=== PATIENT | female | born 1960 | race Caucasian/White ===

== ENCOUNTER 2018-02-03 12:13 | Emergency (ER) | payer OTHER ==
--- NOTE | 2018-02-03 14:37 | EDM.PDOC ---
ED HPI GENERAL MEDICAL PROBLEM - General Chief Complaint: Genitourinary Problem Stated Complaint: possible uti Time Seen by Provider: 02/03/18 14:00 Source of Information: Reports: Patient History Limitations: Reports: No Limitations - History of Present Illness INITIAL COMMENTS - FREE TEXT/NARRATIVE: Yeni presents today with complaints of burning with urination since this morning. She denies fevers, chills, nausea or other concerns. 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 She states she drinks 3 cans of mountain dew per day with little water intake. - Related Data Allergies Allergy/AdvReac Type Severity Reaction Status Date / Time sulfamethoxazole Allergy Hives Verified 02/03/18 13:17 [From Bactrim] trimethoprim [From Bactrim] Allergy Hives Verified 02/03/18 13:17 Home Meds: Home Meds Simvastatin [Zocor] 02/03/18 [History] Past Medical History - Past Surgical History Female Surgical History: Reports: Section, Hysterectomy Social & Family History - Tobacco Use Smoking Status *Q: Never Smoker ED ROS GENERAL - Review of Systems Review Of Systems: See Below Constitutional: Denies: Fever, Chills, Malaise, Weakness HEENT: Reports: No Symptoms Respiratory: Reports: No Symptoms Cardiovascular: Reports: No Symptoms Endocrine: Reports: No Symptoms GI/Abdominal: Denies: Abdominal Pain, Black Stool, Bloody Stool, Diarrhea, Hematochezia, Nausea, Vomiting : Reports: Dysuria. Denies: Flank Pain, Frequency, Hematuria, Incontinence, Urgency, Urinary Retention Musculoskeletal: Reports: No Symptoms Skin: Reports: No Symptoms Neurological: Reports: No Symptoms Psychiatric: Reports: No Symptoms Hematologic/Lymphatic: Reports: No Symptoms Immunologic: Reports: No Symptoms ED EXAM, GI/ABD - Physical Exam Exam: See Below Text/Narrative:: Yeni is an alert and oriented 58 year old female presenting with complaints of burning with urination. She states her symptoms developed this morning. She denies fever, chills, nausea, vomiting, flank pain or other concerns. She has not taken any OTC to help her discomfort. She drinks 3 cans of mountain dew per day, little water intake. Exam Limited By: No Limitations General Appearance: Alert, WD/WN, No Apparent Distress Eyes: Bilateral: Normal Appearance, EOMI Ears: Normal External Exam, Normal Canal, Hearing Grossly Normal, Normal TMs Throat/Mouth: Normal Inspection, Normal Lips, Normal Oropharynx, Normal Voice, No Airway Compromise Respiratory/Chest: No Respiratory Distress, Lungs Clear, Normal Breath Sounds, No Accessory Muscle Use, Chest Non-Tender Cardiovascular: Normal Peripheral Pulses, Regular Rate, Rhythm, No Edema, No Murmur, No Rub GI/Abdominal Exam: Normal Bowel Sounds, Soft, Non-Tender, No Distention, Other ( No suprapubic or flank pain with palpation) Back Exam: Normal Inspection, Full Range of Motion. No: CVA Tenderness (R), CVA Tenderness (L) Extremities: Normal Inspection, Normal Range of Motion, Non-Tender, No Pedal Edema, Normal Capillary Refill Neurological: Alert, Oriented, CN II-XII Intact, Normal Cognition, Normal Gait, No Motor/Sensory Deficits Psychiatric: Normal Affect, Normal Mood Skin Exam: Warm, Dry, Intact, Normal Color, No Rash Lymphatic: No Adenopathy Course - Vital Signs Last Recorded V/S: Last Vital Signs Temp 36.1 C 02/03/18 13:23 Pulse 58 L 02/03/18 13:23 Resp 14 02/03/18 13:23 BP 107/56 L 02/03/18 13:23 Pulse Ox 98 02/03/18 13:23 - Orders/Labs/Meds Orders: Active Orders 24 hr Category Date Time Status CULTURE URINE [RM] Stat Lab 02/03/18 15:13 Received UA W/MICROSCOPIC [URIN] Stat Lab 02/03/18 13:26 Ordered Labs: Laboratory Tests 02/03/18 Range/Units 13:26 Urine Color Yellow Urine Appearance Cloudy Urine pH 6.5 (4.5-8.0) Ur Specific [place] 1.015 (1.008-1.030) Urine Protein Negative (NEGATIVE) mg/dL Urine Glucose (UA) Normal (NEGATIVE) mg/dL Urine Ketones 15 H (NEGATIVE) mg/dL Urine Occult Blood Moderate (NEGATIVE) Urine Nitrite Positive H (NEGATIVE) Urine Bilirubin Negative (NEGATIVE) Urine Urobilinogen Normal (NORMAL) mg/dL Ur Leukocyte Esterase Large (NEGATIVE) Urine RBC 0-5 (0-5) Urine WBC Semi-packed H (0-5) Ur Epithelial Cells Few Amorphous Sediment Few Urine Bacteria Many Urine Mucus Few Meds: Medications Discontinued Medications Generic Name Dose Route Start Last Admin Trade Name Freq PRN Reason Stop Dose Admin Nitrofurantoin Macrocrystals 200 mg 02/03/18 15:05 Macrobid PO 02/03/18 15:06 ONETIME ONE - Re-Assessments/Exams Free Text/Narrative Re-Assessment/Exam: 02/03/18 14:30 Urine collected upon triage, urine not found for patient. Patient informed we would need another urine sample, she declined. She was offered use of water, a work note to be off of work the rest of the day , she declined. She was advised to repeat urine sample due to her symptoms, she declined. 02/03/18 14:35 Patient decided to provide another urine sample. We will run and diagnose as appropriate. Noted acute UTI, medication as directed. Education provided on hydration, drinking of water and follow up with primary provider. Patient verbalized understanding. Departure - Departure Time of Disposition: 14:56 Disposition: Home, Self-Care 01 Condition: Good Clinical Impression: Acute urinary tract infection - Discharge Information Instructions: Urinary Tract Infection, Adult Referrals: PCP,None [Primary Care Provider] - Forms: ED Department Discharge Additional Instructions: You have been treated and diagnosed with acute urinary tract infection. Take nitrofurantoin 100mg by mouth twice a day for a total of 7 days. Drink plenty of water on a daily basis to stay hydrated and prevent infection. Follow up with your primary provider in 14 days for a recheck and recurrent infections. Return for worsening, issues or concerns. - My Orders Last 24 Hours: My Active Orders 02/03/18 13:26 UA W/MICROSCOPIC [URIN] Stat 02/03/18 15:13 CULTURE URINE [RM] Stat - Assessment/Plan Last 24 Hours: My Active Orders 02/03/18 13:26 UA W/MICROSCOPIC [URIN] Stat 02/03/18 15:13 CULTURE URINE [RM] Stat Assessment:: Acute UTI Plan: Patient evaluated and diagnosed with acute urinary tract infection. Take nitrofurantoin 100mg by mouth twice a day for a total of 7 days. Drink plenty of water on a daily basis to stay hydrated and prevent infection. Follow up with primary provider in 14 days for a recheck and recurrent infections. Return for worsening, issues or concerns.
[2018-02-03] MEDS ORDERED: Nitrofurantoin Monohydrate/Macrocrystalline 100 MG Cap PO ONE (15:05)
== END 2018-02-03 14:33 | disposition home or self-care (01) ==
LOC: JP.ED 12:13
DX: N39.0 Urinary tract infection, site not specified (principal); Z88.8 Allergy status to other drugs, medicaments and biological substances
CPT/HCPCS: 81001; 87086; 87088; 87186; 99284

== ENCOUNTER 2020-03-21 21:36 | Emergency (ER) | payer OTHER ==
--- NOTE | 2020-03-21 22:28 | EDM.PDOC ---
ED HPI GENERAL MEDICAL PROBLEM - General Chief Complaint: Genitourinary Problem Stated Complaint: POSSIBLE UTI Time Seen by Provider: 03/21/20 22:01 Source of Information: Reports: Patient, Family, RN Notes Reviewed History Limitations: Reports: No Limitations - History of Present Illness INITIAL COMMENTS - FREE TEXT/NARRATIVE: Yeni presents today with complaints of urinary tract infection and left flank for two days. She reports she has been taking azo with no relief. She denies fever, chills, nausea, vomiting or any other concerns. Left Flank Pain Score (Numeric/FACES): 5 - Related Data Allergies Allergy/AdvReac Type Severity Reaction Status Date / Time sulfamethoxazole Allergy Hives Verified 03/21/20 21:55 [From Bactrim] trimethoprim [From Bactrim] Allergy Hives Verified 03/21/20 21:55 Home Meds: Home Meds Simvastatin [Zocor] 10 mg PO DAILY 02/03/18 [History] Albuterol Sulfate [Proair Hfa] 8.5 gm IH ASDIRECTED 06/12/18 [History] Budesonide/Formoterol Fumarate [Symbicort 160-4.5 Mcg Inhaler] 2 puff IH ASDIRECTED 06/12/18 [History] Naproxen 500 mg PO DAILY 03/21/20 [History] methocarbamoL [Methocarbamol] 500 mg PO QID PRN 03/21/20 [History] Past Medical History HEENT History: Reports: Allergic Rhinitis, Impaired Vision, Otitis Media Cardiovascular History: Reports: High Cholesterol Respiratory History: Reports: Asthma, Bronchitis, Recurrent Gastrointestinal History: Reports: GERD Genitourinary History: Reports: UTI, Recurrent MANAGER FUND History: Reports: Dysfunctional Uterine Bleeding, Musculoskeletal History: Reports: Arthritis Neurological History: Reports: Migraines Hematologic History: Reports: Blood Transfusion(s) - Infectious Disease History Infectious Disease History: Reports: Chicken Pox, Measles - Past Surgical History HEENT Surgical History: Reports: Myringotomy w Tube(s) Female Surgical History: Reports: Section, Hysterectomy Social & Family History - Tobacco Use Smoking Status *Q: Never Smoker - Caffeine Use Caffeine Use: Reports: Soda - Recreational Drug Use Recreational Drug Use: No ED ROS GENERAL - Review of Systems Review Of Systems: See Below Constitutional: Reports: No Symptoms HEENT: Reports: No Symptoms Respiratory: Reports: No Symptoms Cardiovascular: Reports: No Symptoms Endocrine: Reports: No Symptoms GI/Abdominal: Reports: No Symptoms : Reports: Dysuria, Flank Pain, Frequency, Urgency. Denies: Discharge, Hematuria Musculoskeletal: Reports: No Symptoms Skin: Reports: No Symptoms Neurological: Reports: No Symptoms Psychiatric: Reports: No Symptoms Hematologic/Lymphatic: Reports: No Symptoms Immunologic: Reports: No Symptoms ED EXAM, RENAL/ - Physical Exam Exam: See Below Exam Limited By: No Limitations General Appearance: Alert, WD/WN, No Apparent Distress Head: Atraumatic, Normocephalic Respiratory/Chest: No Respiratory Distress, Lungs Clear, Normal Breath Sounds, No Accessory Muscle Use, Chest Non-Tender. No: Crackles, Rales, Rhonchi, Wheezing Cardiovascular: Normal Peripheral Pulses, Regular Rate, Rhythm, No Edema, No Gallop, No Murmur, No Rub Back Exam: Normal Inspection, Full Range of Motion, CVA Tenderness (L). No: CVA Tenderness (R) Extremities: Normal Inspection, Normal Range of Motion, Non-Tender, No Pedal Edema, Normal Capillary Refill Neurological: Alert, Oriented, Normal Cognition, Normal Gait Psychiatric: Normal Affect, Normal Mood Skin Exam: Warm, Dry, Intact, Normal Color, No Rash Lymphatic: No Adenopathy Course - Vital Signs Last Recorded V/S: Last Vital Signs Temp 36.2 C 03/21/20 22:00 Pulse 64 03/21/20 22:00 Resp 18 03/21/20 22:00 BP 118/66 03/21/20 22:00 Pulse Ox 97 03/21/20 22:00 - Orders/Labs/Meds Labs: Laboratory Tests 03/21/20 03/21/20 03/21/20 Range/Units 21:41 22:11 22:11 WBC 6.4 (4.5-11.0) K/uL RBC 4.41 (3.30-5.50) M/uL Hgb 12.8 (12.0-15.0) g/dL Hct 39.9 (36.0-48.0) % MCV 91 (80-98) fL MCH 29 (27-31) pg MCHC 32 (32-36) % Plt Count 266 (150-400) K/uL Neut % (Auto) 51 (36-66) % Lymph % (Auto) 37 (24-44) % [place] % (Auto) 10 H (2-6) % Eos % (Auto) 2 (2-4) % Baso % (Auto) 0 (0-1) % Sodium 140 (140-148) mmol/L Potassium 3.6 (3.6-5.2) mmol/L Chloride 104 (100-108) mmol/L Carbon Dioxide 27 (21-32) mmol/L Anion Gap 9.2 (5.0-14.0) mmol/L BUN 19 H (7-18) mg/dL Creatinine 1.0 (0.6-1.0) mg/dL Est Cr Clr Drug Dosing 50.11 mL/min Estimated GFR (MDRD) 57 L (>60) Glucose 118 H (74-106) mg/dL Calcium 8.8 (8.5-10.1) mg/dL Urine Color [place] A (YELLOW) Urine Appearance Slightly cloudy A (CLEAR) Urine pH 5.0 (5.0-8.0) Ur Specific [place] >= 1.030 (1.008-1.030) Urine Protein 100 H (NEGATIVE) mg/dL Urine Glucose (UA) 100 H (NEGATIVE) mg/dL Urine Ketones Negative (NEGATIVE) mg/dL Urine Occult Blood Trace-intact H (NEGATIVE) Urine Nitrite Positive H (NEGATIVE) Urine Bilirubin Small H (NEGATIVE) Urine Urobilinogen 2.0 H (0.2-1.0) EU/dL Ur Leukocyte Esterase Large H (NEGATIVE) Urine RBC 0-5 (0-5) Urine WBC 50-75 H (0-5) Ur Epithelial Cells Rare Amorphous Sediment Not seen Urine Bacteria Many Urine Mucus Not seen Urine positive for acute urinary tract infection - Re-Assessments/Exams Free Text/Narrative Re-Assessment/Exam: 03/21/20 22:38 Patient lab work reviewed with her, advised to have rocephin 1gram IM with oral ciprofloxacin for treatment due to left flank pain. Patient reports she does not like needles, refuses IM injection. Education provided on risk/signs for worsening infection. Return to the emergency for any worsening, issues or concerns. Urine culture pending. Departure - Departure Time of Disposition: 22:41 Disposition: Home, Self-Care 01 Condition: Good Clinical Impression: UTI, Urinary tract infectious disease - Discharge Information Instructions: Urinary Tract Infection, Adult Referrals: PCP,None [Primary Care Provider] - Forms: ED Department Discharge Additional Instructions: Push water/oral fluids. Take ciprofloxacin 500mg by mouth twice a day for 7 days. Take phenazopyridine as needed for pain. Urine culture pending. Return to the emergency room for any fever, chills, confusion, change in urination, nausea, vomiting or worsening. Sepsis Event Note (ED) - Evaluation Sepsis Screening Result: No Definite Risk - Focused Exam Vital Signs: Vital Signs Temp Pulse Resp BP Pulse Ox 03/21/20 22:00 36.2 C 64 18 118/66 97 03/21/20 21:59 36.2 C 64 18 118/66 97 - Assessment/Plan Assessment:: Urinary tract infectious disease Plan: Push water/oral fluids. Take ciprofloxacin 500mg by mouth twice a day for 7 days. Take phenazopyridine as needed for pain. Urine culture pending. Return to the emergency room for any fever, chills, confusion, change in urination, nausea, vomiting or worsening.
== END 2020-03-21 22:50 | disposition home or self-care (01) ==
LOC: JP.ED 21:36
DX: N39.0 Urinary tract infection, site not specified (principal); E78.00 Pure hypercholesterolemia, unspecified; J45.909 Unspecified asthma, uncomplicated; G43.909 Migraine, unspecified, not intractable, without status migrainosus; Z90.710 Acquired absence of both cervix and uterus; Z98.890 Other specified postprocedural states; Z88.2 Allergy status to sulfonamides; Z79.899 Other long term (current) drug therapy
CPT/HCPCS: 36415; 80048; 81001; 85025; 87086; 87088; 87186; 99283; 99284

== ENCOUNTER 2020-11-29 15:14 | Emergency (ER) | payer OTHER ==
--- NOTE | 2020-11-29 16:05 | EDM.PDOC ---
ED HPI GENERAL MEDICAL PROBLEM - General Chief Complaint: Genitourinary Problem Stated Complaint: POSSIBLE UTI Time Seen by Provider: 11/29/20 16:00 Source of Information: Reports: Patient, RN Notes Reviewed History Limitations: Reports: No Limitations - History of Present Illness INITIAL COMMENTS - FREE TEXT/NARRATIVE: 10-year-old female presents emergency department today complaint of dysuria and frequency no fevers no back pain Bladder Pain Score (Numeric/FACES): 7 - Related Data Allergies Allergy/AdvReac Type Severity Reaction Status Date / Time sulfamethoxazole Allergy Hives Verified 11/29/20 15:41 [From Bactrim] trimethoprim [From Bactrim] Allergy Hives Verified 11/29/20 15:41 Home Meds: Home Meds Simvastatin [Zocor] 10 mg PO DAILY 02/03/18 [History] Albuterol Sulfate [Proair Hfa] 8.5 gm IH ASDIRECTED 06/12/18 [History] Budesonide/Formoterol Fumarate [Symbicort 160-4.5 Mcg Inhaler] 2 puff IH ASDIRECTED 06/12/18 [History] Naproxen 500 mg PO DAILY 03/21/20 [History] methocarbamoL [Methocarbamol] 500 mg PO QID PRN 03/21/20 [History] Past Medical History HEENT History: Reports: Allergic Rhinitis, Impaired Vision, Otitis Media Cardiovascular History: Reports: High Cholesterol Respiratory History: Reports: Asthma, Bronchitis, Recurrent Gastrointestinal History: Reports: GERD Genitourinary History: Reports: UTI, Recurrent LIAISON 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 History: Reports: Dysfunctional Uterine Bleeding, Musculoskeletal History: Reports: Arthritis Neurological History: Reports: Migraines Hematologic History: Reports: Blood Transfusion(s) - Infectious Disease History Infectious Disease History: Reports: Chicken Pox, Measles - Past Surgical History HEENT Surgical History: Reports: Myringotomy w Tube(s) Female Surgical History: Reports: Section, Hysterectomy Social & Family History - Tobacco Use Tobacco Use Status *Q: Never Tobacco User Second Hand Smoke Exposure: No - Caffeine Use Caffeine Use: Reports: Soda - Recreational Drug Use Recreational Drug Use: No ED ROS GENERAL - Review of Systems Review Of Systems: See Below Constitutional: Reports: No Symptoms : Reports: Dysuria, Frequency ED EXAM, RENAL/ - Physical Exam Exam: See Below Exam Limited By: No Limitations General Appearance: Alert, WD/WN, No Apparent Distress Respiratory/Chest: No Respiratory Distress GI/Abdominal: Soft, Non-Tender Course - Vital Signs Last Recorded V/S: Last Vital Signs Temp 97.3 F 11/29/20 15:46 Pulse 64 11/29/20 15:46 Resp 16 11/29/20 15:46 BP 116/61 11/29/20 15:46 Pulse Ox 96 11/29/20 15:46 - Orders/Labs/Meds Orders: Active Orders 24 hr Category Date Time Status CULTURE URINE [RM] Urgent Lab 11/29/20 16:00 Ordered Labs: Laboratory Tests 11/29/20 Range/Units 15:40 Urine Color Yellow (YELLOW) Urine Appearance Clear (CLEAR) Urine pH 7.0 (5.0-8.0) Ur Specific [place] 1.020 (1.008-1.030) Urine Protein Negative (NEGATIVE) mg/dL Urine Glucose (UA) Negative (NEGATIVE) mg/dL Urine Ketones Negative (NEGATIVE) mg/dL Urine Occult Blood Trace-lysed H (NEGATIVE) Urine Nitrite Positive H (NEGATIVE) Urine Bilirubin Negative (NEGATIVE) Urine Urobilinogen 0.2 (0.2-1.0) EU/dL Ur Leukocyte Esterase Negative (NEGATIVE) Urine RBC 0-5 (0-5) Urine WBC 5-10 H (0-5) Ur Epithelial Cells Rare Amorphous Sediment Not seen Urine Bacteria Moderate Urine Mucus Not seen Departure - Departure Time of Disposition: 16:05 Disposition: Home, Self-Care 01 Condition: Fair Clinical Impression: UTI, Urinary tract infectious disease - Discharge Information Instructions: Urinary Tract Infection, Adult, [id number] Referrals: PCP,None [Primary Care Provider] - Additional Instructions: Take full course of antibiotics, please followup with your primary care provider in 3-5 days if not better, please call return to the emergency department with worsening of symptoms. Sepsis Event Note (ED) - Evaluation Sepsis Screening Result: No Definite Risk - Focused Exam Vital Signs: Vital Signs Temp Pulse Resp BP Pulse Ox 11/29/20 15:46 97.3 F 64 16 116/61 96 11/29/20 15:31 97.3 F 64 16 116/61 96 - My Orders Last 24 Hours: My Active Orders 11/29/20 16:00 CULTURE URINE [RM] Urgent - Assessment/Plan Last 24 Hours: My Active Orders 04/11/21 16:00 CULTURE URINE [RM] Urgent Plan: Assessment Acuity = acute Site and laterality = urinary tract infection Etiology = probable bacterial cause Manifestations = dysuria Location of injury = Home Lab values = urinalysis positive for nitrates cultures pending Plan Elected to treat empirically Macrobid 100 mg p.o. twice daily x5 days follow-up primary care 3 to 5 days if not better This note was dictated using [employer] voice recognition software please call with any questions on syntax or grammar.
== END 2020-11-29 16:13 | disposition home or self-care (01) ==
LOC: JP.ED 15:14
DX: N39.0 Urinary tract infection, site not specified (principal); E78.00 Pure hypercholesterolemia, unspecified; J45.909 Unspecified asthma, uncomplicated; Z90.710 Acquired absence of both cervix and uterus; Z79.899 Other long term (current) drug therapy; Z88.1 Allergy status to other antibiotic agents
CPT/HCPCS: 81001; 87086; 99283

== ENCOUNTER 2021-06-05 22:05 | Emergency (ER) | payer OTHER ==
--- NOTE | 2021-06-05 22:59 | EDM.PDOC ---
ED HPI GENERAL MEDICAL PROBLEM - General Chief Complaint: Respiratory Problem Stated Complaint: COUGH X 11 DAYS Time Seen by Provider: 06/05/21 22:45 Source of Information: Reports: Patient, Old Records, RN History Limitations: Reports: No Limitations - History of Present Illness INITIAL COMMENTS - FREE TEXT/NARRATIVE: 61 yo female presents for a cough. Sx's are worse at night. No other associated sx's other than a little clear rhinorrhea and nasal congestion. Has asthma, but states her albuterol does not help her cough. She has Mounika at home, but is not currently taking it. The coughing has been going on for about 1.5 weeks. Has not been to her primary for this. Feels like she may be having a low grade fever at times. Had an episode of bilateral leg weakness earlier today that resolved on its own fully. Onset: Gradual Onset Date: 05/26/21 Duration: Week(s): (1.5), Waxing/Waning Location: Reports: Chest Quality: Reports: Other (no pain) Severity: Mild Improves with: Reports: None Worsens with: Reports: Other (unknown) Context: Reports: Other (See HPI) Associated Symptoms: Reports: Cough. 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 (see below) (took Excedrin before coming in) body aches Pain Score (Numeric/FACES): 6 headache Pain Score (Numeric/FACES): 9 - Related Data Allergies Allergy/AdvReac Type Severity Reaction Status Date / Time sulfamethoxazole Allergy Hives Verified 06/05/21 22:18 [From Bactrim] trimethoprim [From Bactrim] Allergy Hives Verified 06/05/21 22:18 Home Meds: Home Meds Simvastatin [Zocor] 10 mg PO DAILY 02/03/18 [History] Budesonide/Formoterol Fumarate [Symbicort 160-4.5 Mcg Inhaler] 2 puff IH ASDIRECTED 06/12/18 [History] Naproxen 500 mg PO DAILY 03/21/20 [History] methocarbamoL [Methocarbamol] 500 mg PO QID PRN 03/21/20 [History] Past Medical History HEENT History: Reports: Allergic Rhinitis, Impaired Vision, Otitis Media Cardiovascular History: Reports: High Cholesterol Respiratory History: Reports: Asthma, Bronchitis, Recurrent Gastrointestinal History: Reports: GERD Genitourinary History: Reports: UTI, Recurrent HR INTERN History: Reports: Dysfunctional Uterine Bleeding, Musculoskeletal History: Reports: Arthritis Neurological History: Reports: Migraines Hematologic History: Reports: Blood Transfusion(s) - Infectious Disease History Infectious Disease History: Reports: Chicken Pox, Measles - Past Surgical History HEENT Surgical History: Reports: Myringotomy w Tube(s) Female Surgical History: Reports: Section, Hysterectomy Social & Family History - Tobacco Use Tobacco Use Status *Q: Never Tobacco User - Caffeine Use Caffeine Use: Reports: Soda - Recreational Drug Use Recreational Drug Use: No ED ROS GENERAL - Review of Systems Review Of Systems: See Below Constitutional: Reports: Fever (not measured) HEENT: Reports: Rhinitis (and mild congestion) Respiratory: Reports: Cough. Denies: Shortness of Breath, Wheezing, Sputum Cardiovascular: Reports: No Symptoms GI/Abdominal: Reports: No Symptoms Skin: Reports: No Symptoms ED EXAM, GENERAL - Physical Exam Exam: See Below Exam Limited By: No Limitations General Appearance: Alert, WD/WN, No Apparent Distress Eye Exam: Bilateral Eye: Normal Inspection Ears: Normal External Exam, Normal Canal, Hearing Grossly Normal, Normal TMs Ear Exam: Bilateral Ear: Auricle Normal, Canal Normal, TM normal Nose: Clear Rhinorrhea, Other (nasal congestion, pale nasal mucosa) Throat/Mouth: Normal Inspection, Normal Lips, Normal Oropharynx, Normal Voice, No Airway Compromise Head: Atraumatic, Normocephalic Neck: Normal Inspection Respiratory/Chest: No Respiratory Distress, Lungs Clear, Normal Breath Sounds, No Accessory Muscle Use Cardiovascular: Regular Rate, Rhythm, No Edema Extremities: Normal Inspection Neurological: Alert, Oriented, CN II-XII Intact, Normal Cognition, No Lyndsay r/Sensory Deficits Psychiatric: Normal Affect, Normal Mood Skin Exam: Warm, Dry, Intact, Normal Color, No Rash Course - Vital Signs Last Recorded V/S: Last Vital Signs Temp 36.2 C 06/05/21 22:21 Pulse 89 06/05/21 22:21 Resp 16 06/05/21 22:21 BP 105/64 06/05/21 22:21 Pulse Ox 97 06/05/21 22:21 Departure - Departure Time of Disposition: 23:00 Disposition: Home, Self-Care 01 Condition: Good Clinical Impression: Cough Allergic rhinitis Qualifiers: Allergic rhinitis trigger: unspecified Allergic rhinitis seasonality: unspecified Qualified Code(s): J30.9 - Allergic rhinitis, unspecified - Discharge Information *PRESCRIPTION DRUG MONITORING PROGRAM REVIEWED*: Not Applicable *COPY OF PRESCRIPTION DRUG MONITORING REPORT IN PATIENT REDD: Not Applicable Instructions: Allergic Rhinitis, Adult, [id number] Referrals: PCP,None [Primary Care Provider] - Additional Instructions: Take your Mounika every day for awhile until your coughing has resolved. Use the Robitussin mainly at night to help you sleep. If your leg weakness returns try t o get seen while they are still weak as it will be easier to determine the cause if you are still symptomatic. Sepsis Event Note (ED) - Focused Exam Vital Signs: Vital Signs Temp Pulse Resp BP Pulse Ox 06/05/21 22:21 36.2 C 89 16 105/64 97 06/05/21 22:14 36.2 C 89 16 105/64 97
== END 2021-06-05 23:12 | disposition home or self-care (01) ==
LOC: JP.ED 22:05
DX: J30.9 Allergic rhinitis, unspecified (principal); E78.00 Pure hypercholesterolemia, unspecified; J45.909 Unspecified asthma, uncomplicated; Z88.2 Allergy status to sulfonamides; Z88.1 Allergy status to other antibiotic agents; Z79.899 Other long term (current) drug therapy
CPT/HCPCS: 99283

== ENCOUNTER 2023-01-15 19:42 | Emergency (ER) | payer OTHER ==
[2023-01-15] MEDS ORDERED: Ibuprofen 400 MG Tab PO ONE (23:36)
== END 2023-01-15 23:47 | disposition home or self-care (01) ==
LOC: JP.ED 19:42
DX: M54.42 Lumbago with sciatica, left side (principal); E78.00 Pure hypercholesterolemia, unspecified; Z79.899 Other long term (current) drug therapy; Z88.1 Allergy status to other antibiotic agents; Z86.16 Personal history of COVID-19
CPT/HCPCS: 99283; A9270

== ENCOUNTER 2023-06-25 16:01 | Emergency (ER) | payer OTHER | END 2023-06-25 16:47 | disposition home or self-care (01) | LOC: JP.ED 16:01 | DX: J40 Bronchitis, not specified as acute or chronic (principal); E78.00 Pure hypercholesterolemia, unspecified; Z86.16 Personal history of COVID-19; Z98.890 Other specified postprocedural states; Z88.2 Allergy status to sulfonamides; Z79.899 Other long term (current) drug therapy | CPT/HCPCS: 99282; 99283 ==